=== PATIENT | female | born 1985 | race African-American/Black ===

== ENCOUNTER → 2017-02-21 | Outpatient (CLI) | payer OTHER ==
--- NOTE | 2017-02-26 19:11 | SLEEPCENT ---
DATE OF PROCEDURE: 02/21/2017 REFERRING PHYSICIAN: June Carrera Nocturnal polysomnography was performed to assess sleep physiology in this patient with a history of excessive somnolence and nonrestorative sleep. 8 hours and 16 minutes of data were reviewed. There were 436 minutes of sleep identified. Sleep latency was mildly prolonged at 24.5 minutes. Rapid eye movement (REM) latency was prolonged at 173 minutes. Sleep architecture showed mild fragmentation. There were two REM periods appreciated. Overall sleep efficiency was good at 89.9%. The patient's EKG showed a sinus rhythm with an average heart rate of 65 beats per minute. Frequent ventricular ectopic beats were noted as was significant respiratory rate variability. Rate ranged 40 to 90 beats per minute. EEG showed coarsening of background, possibly medication affect. No other focal events were identified. There were 41 respiratory events identified of 10 seconds in duration or greater for an apnea/hypopnea index of 5.6. The events were not exclusive to sleep stage nor body posture. Arousals from respiratory events occurred 1.5 times per hour. Oxygen desaturations briefly dipped into the 80s. There was some limb activity, but arousals from limb events occurred only 4.0 times per hour. 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 Apnea/hypopnea index 5.6. RECOMMENDATION: Given the patient's clinical presentation and the lack of positional association, referral back to the sleep disorder center for pressure therapy should be considered. In the interim, alcohol and sedative avoidance should be practiced and caution exercised during the operation of motor vehicles.
== END ==
LOC: M SLEEP 19:21
PROVIDERS: ATTEND Nurse Practitioner Adult Health
DX: G47.33 Obstructive sleep apnea (adult) (pediatric) (principal)

== ENCOUNTER → 2017-03-12 | Outpatient (CLI) | payer OTHER ==
--- NOTE | 2017-03-16 11:51 | SLEEPCENT ---
DATE OF STUDY: 03/12/2017 ORDERED BY: June Carrera NP Nocturnal polysomnography was performed for the titration of pressure therapy in this patient with obstructive sleep apnea syndrome, apnea-hypopnea index of 5.6. For testing a ResMed Matthews FX nasal pillows device was used of medium size and 4 cm of water pressure was initially applied to the circuit and the lights were extinguished. 7 hours and 32 minutes of data were reviewed. There were 337 minutes of sleep identified. Sleep latency was prolonged at 29 minutes. Rapid eye movement (REM) latency was normal at 56 minutes. Sleep architecture improved with optimal pressure therapy. There were 2 REM periods appreciated. Overall sleep efficiency was 76.3%. The patient's EKG showed a sinus rhythm with an average heart rate of 56 beats per minute. EEG showed reasonably normal wave forms for awake and sleep. Respiratory events were fully palliated with CPAP at a pressure of +7. Remaining measures of sleep physiology were normal. IMPRESSION: Obstructive sleep apnea (G47.33). RECOMMENDATION: Nightly use of pressure therapy, 7 cm of water.
== END ==
LOC: M SLEEP 19:58
PROVIDERS: ATTEND Nurse Practitioner Adult Health
DX: G47.33 Obstructive sleep apnea (adult) (pediatric) (principal)

== ENCOUNTER → 2017-04-04 | Outpatient (CLI) | payer OTHER ==
--- NOTE | 2017-04-04 11:13 | REP ---
Clinical: Epigastric abdominal pain. Technique: Meng scale ultrasound using curved array transducer. Findings: The liver and pancreas are normal in contour, size, and echogenicity without focal hepatic or pancreatic lesions identified. The gallbladder is normal without gallstones, wall thickening or pericholecystic fluid. No biliary ductal dilatation is appreciated, and the common bile duct measures 4.2 mm diameter. The right kidney is normal in reniform shape without hydronephrosis and measures 11.0 x 7.0 x 4.8 cm. No ascites. Visualized portions of the abdominal aorta normal. Impression: Normal right upper quadrant and gallbladder abdominal ultrasound. Signed by Chandan Ibrahim MD 04/04/2017 10:00 A
== END ==
LOC: M RAD 08:56
PROVIDERS: ATTEND Internal Medicine Gastroenterology
DX: R10.9 Unspecified abdominal pain (principal)

== ENCOUNTER → 2017-04-30 | Outpatient (REF) | payer OTHER | LOC: M LAB REF 09:31 | PROVIDERS: ATTEND Internal Medicine Gastroenterology | DX: R10.13 Epigastric pain (principal) ==

== ENCOUNTER 2017-06-17 14:06 | Emergency (ER) | payer OTHER ==
[~2017-06-17] VITALS: Ht 167.6 cm; Wt 106.4 kg
[2017-06-17] MEDS ORDERED: MELA3TAB49 PO (14:23)
[2017-06-17] MEDS ORDERED: ZOMI2.5T PO (14:23)
[2017-06-17] MEDS ORDERED: EFFE150C PO (14:23)
[2017-06-17] MEDS ORDERED: KETOROLAC 60 MG/2 ML VIAL (J1885) IM ONE (17:00)
[2017-06-17] MEDS ORDERED: NORCO, ANEXSIA 5/325MG TABLET (HYDROcodone/ACETAMINOPHEN) PO ONE (17:00)
[2017-06-17 17:28] VITALS: BP 128/72
[2017-06-17] MEDS ORDERED: NORCOTAB PO (18:08)
[2017-06-17] MEDS ORDERED: VALI5TAB PO (18:08)
== END 2017-06-17 18:22 | disposition home or self-care (01) ==
LOC: M ED 14:06
DX: S39.012A Strain of muscle, fascia and tendon of lower back, initial encounter (principal); X58.XXXA Exposure to other specified factors, initial encounter; Y92.89 Other specified places as the place of occurrence of the external cause; Y93.89 Activity, other specified; Y99.8 Other external cause status; J30.89 Other allergic rhinitis; Z79.899 Other long term (current) drug therapy
CPT/HCPCS: 81001; 96372; 99284; J1885; J3360

== ENCOUNTER → 2017-07-15 | Day surgery (SDC) | payer OTHER ==
[~2017-07-15] VITALS: Ht 167.6 cm; Wt 106.1 kg
[~2017-07-15] MED LIST: EFFE150C PO; LIDOCAINE 2% INJ 100 MG/5 ML SDV (FOR ANES.) As Ordered ONE; MELA3TAB49 PO; NORCOTAB PO; NS 1,000 ML IV SCH; PANT40TA2 PO; PROPOFOL 200 MG/20 ML VIAL As Ordered ONE; VALI5TAB PO; ZOMI2.5T PO; fentaNYL 100 MCG/2 ML INJECTION (J3010) As Ordered ONE
--- NOTE | 2017-07-15 14:53 | ROOR ---
Patient Name: Bhargav Baca Procedure Date: 07/15/2017 2:11 PM Date of : 1985 Age: 32 Room: [facility] Gender: Female Note Status: Finalized Procedure: Upper GI endoscopy Indications: Epigastric abdominal pain, Crohn's disease Providers: Ezio Dhaliwal MD Referring MD: MATHEW MOROCHO MD Requesting Provider: Medicines: Monitored Anesthesia Care Complications: No immediate complications. Procedure: Pre-Anesthesia Assessment: - Prior to the procedure, a History and Physical was performed, and patient medications and allergies were reviewed. The patient is competent. The risks and benefits of the procedure and the sedation options and risks were discussed with the patient. All questions were answered and informed consent was obtained. Patient identification and proposed procedure were verified by the physician, the nurse and the anesthesiologist in the procedure room. Mental Status Examination: alert and oriented. Airway Examination: normal oropharyngeal airway and neck mobility. Respiratory Examination: clear to auscultation. CV Examination: normal. Prophylactic Antibiotics: The patient does not require prophylactic antibiotics. Prior Anticoagulants: The patient has taken no previous anticoagulant or antiplatelet agents. ASA Grade Assessment: II - A patient with mild systemic disease. After reviewing the risks and benefits, the patient was deemed in satisfactory condition to undergo the procedure. The anesthesia plan was to use monitored anesthesia care (MAC). Immediately prior to administration of medications, the patient was re-assessed for adequacy to receive sedatives. The heart rate, respiratory rate, oxygen saturations, blood pressure, adequacy of pulmonary ventilation, and response to care were monitored throughout the procedure. The physical status of the patient was re-assessed after the procedure. The Endoscope was introduced through the mouth, and advanced to the second part of duodenum. The upper GI endoscopy was accomplished without difficulty. The patient tolerated the procedure well. Findings: The examined esophagus was normal. The entire examined stomach was normal. Mucosa was biopsied with a cold forceps for histology. One specimen bottle was sent to pathology. Verification of patient identification for the specimen was done by the physician and nurse using the patient's name, date and medical record number. Estimated blood loss was minimal. The duodenal bulb and second portion of the duodenum were normal. Biopsies for histology were taken with a cold forceps for evaluation of celiac disease. Impression: - Normal esophagus. - Normal stomach. Biopsied. - Normal duodenal bulb and second portion of the duodenum. Biopsied. Recommendation: - Patient has a contact number available for emergencies. The signs and symptoms of potential delayed complications were discussed with the patient. Return to normal activities tomorrow. Written discharge instructions were provided to the patient. - Resume previous diet. - Continue present medications. - Await pathology results. - Return to GI clinic as previously scheduled on 07/22/2017 at 9:00 AM. - Return to primary care physician. Ezio Dhaliwal MD Ezio Dhaliwal MD 07/15/2017 2:53:36 PM This report has been signed electronically. Number of Addenda: 0 Note Initiated On: 07/15/2017 2:11 PM Estimated Blood Loss: Estimated blood loss was minimal.
--- NOTE | 2017-07-15 14:58 | ROOR ---
Patient Name: Bhargav Baca Procedure Date: 07/15/2017 2:12 PM Date of : 1985 Age: 32 Room: [facility] Gender: Female Note Status: Finalized Procedure: Colonoscopy Indications: Chronic diarrhea Providers: Ezio Dhaliwal MD Referring MD: MATHEW MOROCHO MD Requesting Provider: Medicines: Monitored Anesthesia Care Complications: No immediate complications. Procedure: Pre-Anesthesia Assessment: - Prior to the procedure, a History and Physical was performed, and patient medications and allergies were reviewed. The patient is competent. The risks and benefits of the procedure and the sedation options and risks were discussed with the patient. All questions were answered and informed consent was obtained. Patient identification and proposed procedure were verified by the physician, the nurse and the anesthesiologist in the procedure room. Mental Status Examination: normal. Airway Examination: normal oropharyngeal airway and neck mobility. Respiratory Examination: clear to auscultation. CV Examination: normal. Prophylactic Antibiotics: The patient does not require prophylactic antibiotics. Prior Anticoagulants: The patient has taken no previous anticoagulant or antiplatelet agents. ASA Grade Assessment: II - A patient with mild systemic disease. After reviewing the risks and benefits, the patient was deemed in satisfactory condition to undergo the procedure. The anesthesia plan was to use monitored anesthesia care (MAC). Immediately prior to administration of medications, the patient was re-assessed for adequacy to receive sedatives. The heart rate, respiratory rate, oxygen saturations, blood pressure, adequacy of pulmonary ventilation, and response to care were monitored throughout the procedure. The physical status of the patient was re-assessed after the procedure. The Colonoscope was introduced through the anus and advanced to the terminal ileum, with identification of the appendiceal orifice and IC valve. The colonoscopy was performed without difficulty. The patient tolerated the procedure well. Findings: The perianal and digital rectal examinations were normal. The terminal ileum appeared normal. Normal mucosa was found in the entire colon. Biopsies for histology were taken with a cold forceps from the right colon, left colon and rectosigmoid colon for evaluation of microscopic colitis. Verification of patient identification for the specimen was done by the physician and nurse using the patient's name, date and medical record number. Estimated blood loss was minimal. Non-bleeding external hemorrhoids were found during retroflexion. The hemorrhoids were medium-sized. Impression: - The examined portion of the ileum was normal. - Normal mucosa in the entire examined colon. Biopsied. - Non-bleeding external hemorrhoids. Recommendation: - Patient has a contact number available for emergencies. The signs and symptoms of potential delayed complications were discussed with the patient. Return to normal activities tomorrow. Written discharge instructions were provided to the patient. - Resume previous diet. - Continue present medications. - Await pathology results. - Repeat colonoscopy at age 50 for screening purposes. - Return to GI clinic as previously scheduled on 07/22/2017 at 9:00 AM. - Return to primary care physician. Ezio Dhaliwal MD Ezio Dhaliwal MD 07/15/2017 2:57:57 PM This report has been signed electronically. Number of Addenda: 0 Note Initiated On: 07/15/2017 2:12 PM Estimated Blood Loss: Estimated blood loss was minimal.
[2017-07-15 15:20] VITALS: BP 128/79
== END | disposition home or self-care (01) ==
LOC: M OPP 11:18
PROVIDERS: ATTEND Internal Medicine Gastroenterology
DX: R19.7 Diarrhea, unspecified (principal); K64.4 Residual hemorrhoidal skin tags; K50.90 Crohn's disease, unspecified, without complications; R10.13 Epigastric pain; K21.9 Gastro-esophageal reflux disease without esophagitis; F41.9 Anxiety disorder, unspecified; F32.9 Major depressive disorder, single episode, unspecified; G43.909 Migraine, unspecified, not intractable, without status migrainosus; G47.30 Sleep apnea, unspecified; R06.83 Snoring; Z97.8 Presence of other specified devices; Z79.899 Other long term (current) drug therapy
CPT/HCPCS: 43239; 45380; 88305; J3010

== ENCOUNTER 2017-10-12 18:25 | Emergency (ER) | payer OTHER ==
[2017-10-12] MEDS: ONDANSETRON 4 MG ORAL DISINTEGRATING TAB (S0181) PO (18:45)
[2017-10-12 18:59] LABS: BASO % 0.4 % (0.0-1.0); CONTROL LINE UCG INT CTR LINE PRESENT; EOS # 0.1 10^3/uL (0.0-0.50); EOS % 2.2 % (0.0-3.0); HEMATOCRIT 36.2 % (36.0-47.0); HEMOGLOBIN 12.7 g/dl (12.0-16.0); IMMATURE GRANULOCYTE % 0.2 % (0-3.0); LYMPH # 2.3 10^3/uL (1.5-4.5); LYMPH % 50.1 % (24.0-44.0); MEAN CORPUSCULAR HEMOGLOBIN 29.7 pg (27.0-33.0); MEAN CORPUSCULAR HGB CONC 35.1 g/dl (32.0-36.5); MEAN CORPUSCULAR VOLUME 84.6 fl (80.0-96.0); MONO # 0.4 10^3/uL (0.0-0.8); MONO % 8.4 % (0.0-5.0); NEUTROPHILS # 1.8 10^3/uL (1.8-7.7); NEUTROPHILS % 38.7 % (36.0-66.0); PLATELET COUNT, AUTOMATED 361 10^3/uL (150-450); RED BLOOD COUNT 4.28 10^6/uL (4.00-5.40); URINE PREG TEST NEGATIVE (NEGATIVE); WHITE BLOOD COUNT 4.5 10^3/uL (4.0-10.0)
[2017-10-12 19:01] LABS: KETONE, URINE AUTO RFX NEGATIVE (NEGATIVE); LEUKOCYTE ESTERASE UR AUTO RFX NEGATIVE (NEGATIVE); MUCUS, URINE RFX SMALL (NEGATIVE); NITRITE, URINE AUTO RFX NEGATIVE (NEGATIVE); RBC, URINE AUTO RFX 3 /HPF (0-3); SQUAM EPITHELIAL CELL UR AURFX 1 /HPF (0-6); WBC, URINE AUTO RFX 2 /HPF (0-3)
[2017-10-12 19:29] LABS: ALBUMIN 3.9 GM/DL (3.2-5.2); ALKALINE PHOSPHATASE 78 U/L (45-117); ALT/SGPT 31 U/L (12-78); ANION GAP 8 MEQ/L (8-16); AST/SGOT 24 U/L (7-37); BILIRUBIN,TOTAL 0.3 MG/DL (0.2-1.0); BLOOD UREA NITROGEN 7 MG/DL (7-18); CALCIUM LEVEL 8.8 MG/DL (8.5-10.1); CARBON DIOXIDE LEVEL 27 MEQ/L (21-32); CHLORIDE LEVEL 106 MEQ/L (98-107); CREATININE FOR GFR 0.74 MG/DL (0.55-1.30); GLOMERULAR FILTRATION RATE > 60.0 (>60); GLUCOSE, FASTING 75 MG/DL (70-100); LIPASE 848 U/L (73-393); POTASSIUM SERUM 3.4 MEQ/L (3.5-5.1); SODIUM LEVEL 141 MEQ/L (136-145); TOTAL PROTEIN 7.8 GM/DL (6.4-8.2)
[2017-10-12] MEDS ORDERED: ISOVUE-370 76% 100ML VIAL (Q9967) As Ordered (19:53)
== END 2017-10-12 21:56 | disposition home or self-care (01) ==
LOC: M ED 18:25
DX: R10.9 Unspecified abdominal pain (principal); R74.8 Abnormal levels of other serum enzymes; R19.7 Diarrhea, unspecified; R11.0 Nausea
CPT/HCPCS: Q9967

== ENCOUNTER → 2017-10-22 | Outpatient (CLI) | payer OTHER ==
[2017-10-22 13:12] LABS: AMYLASE 79 U/L (25-115)
[2017-10-22 13:12] LABS: LIPASE 422 U/L (73-393)
[2017-10-25 00:08] LABS: IgG SUBCLASS 4(ONLY) 34 mg/dL (2-96)
== END ==
LOC: M LAB 12:16
DX: R74.8 Abnormal levels of other serum enzymes (principal)

== ENCOUNTER → 2017-11-10 | Outpatient (CLI) | payer OTHER ==
[~2017-11-10] MED LIST changes: -EFFE150C PO; -LIDOCAINE 2% INJ 100 MG/5 ML SDV (FOR ANES.) As Ordered ONE; -MELA3TAB49 PO; -NORCOTAB PO; -NS 1,000 ML IV SCH; -PANT40TA2 PO; +PROHANCE 279.3MG/ML 5ML VIAL (A9576) As Ordered; -PROPOFOL 200 MG/20 ML VIAL As Ordered ONE; -VALI5TAB PO; -ZOMI2.5T PO; -fentaNYL 100 MCG/2 ML INJECTION (J3010) As Ordered ONE
== END ==
LOC: M RAD 13:30
DX: R51 Headache (principal)
CPT/HCPCS: A9576

== ENCOUNTER 2018-07-04 20:48 | Emergency (ER) | payer OTHER ==
[2018-07-04] MEDS: KETOROLAC TROMETHAMINE 10 MG TAB PO (21:20)
[2018-07-04] MEDS: diazePAM 5 MG TAB PO (21:20)
== END 2018-07-04 21:51 | disposition home or self-care (01) ==
LOC: M ED 20:48
DX: S29.012A Strain of muscle and tendon of back wall of thorax, initial encounter (principal); V43.52XA Car driver injured in collision with other type car in traffic accident, initial encounter; Y92.410 Unspecified street and highway as the place of occurrence of the external cause; Y93.9 Activity, unspecified; Y99.9 Unspecified external cause status; G47.00 Insomnia, unspecified; F32.9 Major depressive disorder, single episode, unspecified; F41.9 Anxiety disorder, unspecified; J30.9 Allergic rhinitis, unspecified; Z79.899 Other long term (current) drug therapy
CPT/HCPCS: 72072

== ENCOUNTER 2018-09-11 21:56 | Emergency (ER) | payer OTHER ==
[~2018-09-11] VITALS: Ht 167.6 cm; Wt 100.0 kg
[~2018-09-11 21:56] MED LIST changes: +D 50CAP; +EFFE150C2 PO; +HYDR-643 PO; +KETO10TAB PO; +LACT3000 PO; +MELA3TAB49 PO; +NORCOTAB PO; +PANT40TA3; +PANT40TA3 PO; -PROHANCE 279.3MG/ML 5ML VIAL (A9576) As Ordered; +RELP20TA; +SERT25TA88; +TRAZ-160; +VALI5TAB PO; +VENL37.598 PO; +WELLTAB38; +ZANT300T9 PO; +ZOFR4TAB14 PO; +ZOMI2.5T PO
[2018-09-11 21:57] VITALS: BP 139/83
[2018-09-11] MEDS ORDERED: IBUP-1022 PO (22:56)
[2018-09-11] MEDS ORDERED: IBUPROFEN 600 MG TAB PO ONE (23:00)
--- NOTE | 2018-09-12 09:06 | REP ---
LEFT HAND COMPLETE: 09/11/2018. CLINICAL HISTORY: Pain and stiffness. States 3rd digit most symptomatic. FINDINGS: No prior study. Four views are provided. Distal radius and ulna, carpal bones, and their joint spaces were grossly intact. There are minimal spurs in the 1st CMC joint from the 1st metacarpal and minimal degenerative changes at the 1st MCP joint. The other MCP and IP joints are without fracture, avulsion, erosion, or joint space narrowing. There are tiny spurs, ulnar margin of the proximal phalanges of the 3rd and 4th digits. I do not see a radiopaque foreign body. Minor soft tissue swelling of the 2nd, 3rd, and 4th digits suggested. IMPRESSION: 1. Very minimal degenerative changes as described at thumb MCP and IP joints and the proximal phalanges of the 3rd and 4th finger. Mild swelling of the 2nd through 4th digits without erosion, avulsion, fracture nor any foreign body. Electronically Signed by Marshall Pineda MD 09/12/2018 09:32 A
== END 2018-09-11 23:13 | disposition home or self-care (01) ==
LOC: M ED 21:56
DX: S66.912A Strain of unspecified muscle, fascia and tendon at wrist and hand level, left hand, initial encounter (principal); X58.XXXA Exposure to other specified factors, initial encounter; Y92.89 Other specified places as the place of occurrence of the external cause; J30.89 Other allergic rhinitis; Z79.899 Other long term (current) drug therapy

== ENCOUNTER → 2018-10-01 | Outpatient (CLI) | payer OTHER ==
[~2018-10-01] MED LIST changes: +IBUP-1022 PO
--- NOTE | 2018-10-01 09:50 | REP ---
BILATERAL MAMMOGRAM: No family history of breast cancer. [facility] risk of breast cancer 13.1%. No comparison studies. Bilateral mammogram performed in the MLO and CC projections with additional axillary CC view of the left breast. There is a mass in the posterior upper outer quadrant of the left breast in the region of the axillary tail. This measures approximately 3.9 cm in maximum diameter. Some of the borders appear well defined while others appear ill-defined. No other mass is seen. No clustered microcalcifications are seen. There is moderate scattered fibroglandular tissue bilaterally. There are small axillary lymph nodes present. IMPRESSION: ACR 0 incomplete. There is a mass in the posterior left upper outer quadrant in the region of the axillary tail measuring 3.9 cm maximum diameter. Recommend spot compression views and ultrasound to further evaluate. BIRADS 0: BI-RADS/ACR category 0 mammogram, Incomplete: Need additional imaging evaluation and/or prior mammograms for comparison. This mammogram was interpreted with the aid of an FDA-approved computer-aided detection system. The patient states she has not had a clinical breast exam in over a year. The patient letter being requested is M0. Electronically Signed by Glenn Meng MD 10/01/2018 05:00 P
== END ==
LOC: M RAD 08:15
PROVIDERS: ATTEND Physician Assistant
DX: Z12.31 Encounter for screening mammogram for malignant neoplasm of breast (principal)

== ENCOUNTER → 2018-10-09 | Outpatient (CLI) | payer OTHER ==
--- NOTE | 2018-10-10 07:04 | REP ---
LEFT BREAST ULTRASOUND: 10/09/2018. Clinical history: Palpable lump outer half left breast: Comparison: Diagnostic mammogram today, screening mammogram 10/01/2018. Findings: Sonographic evaluation of the left breast from the 12-o'clock to 3-o'clock position upper outer quadrant. Palpable lump is at 3 o'clock and described as tender. At the 3 o'clock position there is a hypoechoic mass measuring 3.5 x 1.1 x 3.3 cm. It is fairly homogeneously hypoechoic, has some through transmission and color flow is seen within it. At the noon position there are a couple of more subtle hypoechoic areas consistent with heterogeneous normal appearing breast tissue. Impression: BIRADS ACR category 4 suspicious. Suspicious finding. Solid mass which although it favors a fibroadenoma on ultrasound characteristics, its size of 3.5 cm warrants consideration for biopsy. Please see the mammogram report this date. Electronically Signed by Marshall Pineda MD 10/10/2018 12:02 P
--- NOTE | 2018-10-10 07:14 | REP ---
DIAGNOSTIC DIGITAL LEFT MAMMOGRAM: 10/09/2018. COMPARISON: Breast ultrasound 10/09/2018, screening mammogram 10/01/2018 CLINICAL HISTORY: Abnormal screening mammogram and palpable finding noted now in the upper outer quadrant of the left breast posteriorly at about the 3-o'clock position. TECHNIQUE: Spot magnified CC, MLO and true ML images were obtained. FINDINGS: At the 3-o'clock position posteriorly in the left breast upper outer quadrant there is an oval moderately dense mass with fairly well circumscribed margins. No associated microcalcifications. The breast parenchyma otherwise heterogeneously dense in a pattern scattered throughout. No architectural distortion or skin thickening. Left breast ultrasound showed that mass being hypoechoic and 3.5 x 1.1 x 3.3 cm, 4.9 cm from the nipple. It is homogeneous and hypoechoic but has color flow within. There is some through transmission. IMPRESSION: BIRADS 4: BI-RADS/ACR category 4 mammogram. Suspicious Abnormality - biopsy should be considered. Although the most likely pathologic consideration is fibroadenoma, the large size of the lesion warrants biopsy in my opinion. A ultrasound-guided core needle biopsy would be recommended. Electronically Signed by Marshall Pineda MD 10/10/2018 12:03 P
== END ==
LOC: M RAD 14:14
PROVIDERS: ATTEND Physician Assistant
DX: N63.21 Unspecified lump in the left breast, upper outer quadrant (principal)